=== PATIENT | female | born 1985 | race American Indian/Alaskan Native ===

== ENCOUNTER 2018-12-07 13:22 | Emergency (ER) | payer MEDICAID ==
[2018-12-07] MEDS ORDERED: Ondansetron 4 MG Tab.DIS PO ONE (13:59)
[2018-12-07] MEDS ORDERED: HYDROmorphone 1 MG/ML Syringe IM ONE (13:59)
[2018-12-07] MEDS ORDERED: Colchicine 0.6 MG Tab PO ONE ×2 (14:06→15:00)
--- NOTE | 2018-12-07 14:06 | EDM.PDOC ---
ED HPI GENERAL MEDICAL PROBLEM - General Chief Complaint: Lower Extremity Injury/Pain Stated Complaint: LT FOOT SWELLING AND PAIN Time Seen by Provider: 12/07/18 13:48 Source of Information: Reports: Patient, RN Notes Reviewed History Limitations: Reports: No Limitations - History of Present Illness INITIAL COMMENTS - FREE TEXT/NARRATIVE: Patient is a 33-year-old female who presents to the ED for the evaluation of left ankle pain. The patient states that around 6 this morning she was walking down the stairs at her motel and she was on the very last step and she thought she felt something crack in her foot. She did not have any sort of fall and did not account rolling her ankle at this time. But the patient developed lots of pain and swelling to the area and it is red and warm to the touch. The patient did try to use some ice on this but she stated however that the weight of the ice is almost too painful to be able to provide much relief. She is unable to bear much weight on the extremity as well. She took 1500 mg of Tylenol and 1200 mg of Motrin this morning with little to no relief. Patient states she's not had any sort of pain like this before in her life. She notes this to be throbbing and burning all the same time. Patient denies any chance of as she has had a tubal ligation. Patient would rate her pain at a 10 out of 10 today. She did not have any pain that radiates up the leg at all. She is still able to wiggle her toes. 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 Left Feet Pain Score (Numeric/FACES): 10 - Related Data Allergies Allergy/AdvReac Type Severity Reaction Status Date / Time ceftriaxone [From Rocephin] Allergy Cannot Verified 12/07/18 13:51 Remember Home Meds: Home Meds oxyCODONE HCl/Acetaminophen [Percocet 10-325 mg Tablet] 1 each PO Q6H #12 tablet 12/07/18 [Rx] predniSONE [Deltasone] 20 mg PO ASDIRECTED #15 tablet 12/07/18 [Rx] Past Medical History Respiratory History: Reports: Asthma HOME CARE SPECIALIST History: Reports: Endometriosis Endocrine/Metabolic History: Reports: Diabetes, Type II Other Endocrine/Metabolic History: does not take insulin-does not believe in taking it - Past Surgical History GI Surgical History: Reports: Cholecystectomy Social & Family History - Tobacco Use Smoking Status *Q: Current Every Day Smoker Years of Tobacco use: 20 Packs/Tins Daily: 0.5 - Caffeine Use Caffeine Use: Reports: Soda Other Caffeine Use: case daily - Recreational Drug Use Recreational Drug Use: No Review of Systems - Review of Systems Review Of Systems: See Below Constitutional: Denies: Chills, Fever Eyes: Reports: No Symptoms Ears: Reports: No Symptoms Nose: Reports: No Symptoms Mouth/Throat: Reports: No Symptoms Respiratory: Reports: No Symptoms Cardiovascular: Reports: No Symptoms GI/Abdominal: Reports: No Symptoms Genitourinary: Reports: No Symptoms Musculoskeletal: Reports: Joint Pain (left ankle), Joint Swelling (left ankle ) Skin: Reports: No Symptoms (left ankle with redness) Neurological: Denies: Numbness, Tingling Psychiatric: Reports: No Symptoms ED EXAM, GENERAL - Physical Exam Exam: See Below Exam Limited By: No Limitations General Appearance: Alert, WD/WN, Mild Distress (pt appears to be in mild amt of pain) Respiratory/Chest: No Respiratory Distress, Lungs Clear, Normal Breath Sounds, No Accessory Muscle Use, Chest Non-Tender Cardiovascular: Normal Peripheral Pulses, Regular Rate, Rhythm, No Murmur Peripheral Pulses: 3+: Dorsalis Pedis (L), Dorsalis Pedis (R) Extremities: Normal Capillary Refill, Joint Swelling (of left ankle), Limited Range of Motion (d/t pain), Increased Warmth (of left ankle), Redness (of left ankle). No: Leg Pain, Mottled, Pallor Neurological: Alert, Oriented, Normal Cognition, No Motor/Sensory Deficits Psychiatric: Normal Affect, Normal Mood Skin Exam: Warm, Dry, Intact, Normal Color, No Rash Course - Vital Signs Last Recorded V/S: Last Vital Signs Temp 97.5 F 12/07/18 13:43 Pulse 117 H 12/07/18 13:43 Resp 20 12/07/18 13:43 BP 158/122 H 12/07/18 13:43 Pulse Ox 97 12/07/18 13:43 - Orders/Labs/Meds Orders: Active Orders 24 hr Category Date Time Status Glucose [Blood Glucose Check, Bedside] [RC] ONETIME Care 12/07/18 16:20 Ordered Ankle Min 3V Lt [CR] Stat Exams 12/07/18 13:58 Ordered DME for Discharge [COMM] Routine Oth 12/07/18 15:35 Ordered Meds: Medications Discontinued Medications Generic Name Dose Route Start Last Admin Trade Name Kamila PRN Reason Stop Dose Admin Colchicine 1.2 mg 12/07/18 14:06 12/07/18 15:47 Colcrys PO 12/07/18 14:07 0.6 mg ONETIME ONE Administration Colchicine 0.6 mg 12/07/18 15:00 12/07/18 14:16 Colcrys PO 12/07/18 15:01 0.6 mg ONETIME ONE Administration Hydromorphone HCl 1 mg 12/07/18 13:59 12/07/18 14:05 Dilaudid IM 12/07/18 14:00 1 mg ONETIME ONE Administration Ondansetron HCl 4 mg 12/07/18 13:59 12/07/18 14:05 Zofran Odt PO 12/07/18 14:00 4 mg ONETIME ONE Administration Oxycodone/Acetaminophen 2 tab 12/07/18 14:43 12/07/18 14:58 Percocet 325-5 Mg PO 12/07/18 14:44 2 tab ONETIME ONE Administration Prednisone 40 mg 12/07/18 14:08 12/07/18 14:16 Prednisone PO 12/07/18 14:09 40 mg ONETIME ONE Administration - Re-Assessments/Exams Free Text/Narrative Re-Assessment/Exam: 12/07/18 14:17 Patient presents to the ED for evaluation of a left ankle injury. Patient thought maybe she had some sort of musculoskeletal injury, I did order a left ankle x-ray for evaluation and it appears that the patient might be suffering more from a gout-like attack. Did order colchicine and prednisone to be given and ordered 1 mg Dilaudid with 4 mg Zofran initially. Patient will be sent home with prednisone burst, and other general recommendations. 12/07/18 14:47 Patient was reassessed at bedside, and still has not gotten much relief from the pain. Did order 2 tablets of oxycodone/acetaminophen 5/325's for further management. 12/07/18 16:24 Before discharge, the patient was worried about her blood sugar, I did order a bedside glucose and it was 226. I discussed this with Dr. Curtis and he recommends no treatment at this time. The patient will be advised that she will need to take her insulin at home and check her blood sugars regularly due to the prednisone treatment, she is understanding of this. Departure - Departure Time of Disposition: 15:36 Disposition: Home, Self-Care 01 Condition: Fair Clinical Impression: Gout attack Qualifiers: Gout site: ankle Gout etiology: unspecified cause Laterality: left Qualified Code(s): M10.9 - Gout, unspecified - Discharge Information *PRESCRIPTION DRUG MONITORING PROGRAM REVIEWED*: No *COPY OF PRESCRIPTION DRUG MONITORING REPORT IN PATIENT JOCELYN: No Prescriptions: oxyCODONE HCl/Acetaminophen [Percocet 10-325 mg Tablet] 1 each PO Q6H #12 tablet predniSONE [Deltasone] 20 mg PO ASDIRECTED #15 tablet Instructions: Low-Purine Eating Plan, Gout, [id number] Referrals: PCP,None [Primary Care Provider] - Forms: ED Department Discharge Additional Instructions: You were evaluated in the ED today for your left ankle pain. An x-ray was obtained and did not demonstrate any sort of acute bony abnormalities at this time. Your symptoms are consistent with gout in nature, you were given colchicine and some pain medications in the ER for management of this. You were given a prescription for prednisone, Percocet tablets, please take as directed. You may use crutches for ambulation until the pain is at an excessive level with ambulation. You may try to ice the area as needed for further pain relief. Please return to the ED if your symptoms should change or worsen. - My Orders Last 24 Hours: My Active Orders 12/07/18 13:58 Ankle Min 3V Lt [CR] Stat 12/07/18 15:35 DME for Discharge [COMM] Routine 12/07/18 16:20 Glucose [Blood Glucose Check, Bedside] [RC] ONETIME - Assessment/Plan Last 24 Hours: My Active Orders 12/07/18 13:58 Ankle Min 3V Lt [CR] Stat 12/07/18 15:35 DME for Discharge [COMM] Routine 12/07/18 16:20 Glucose [Blood Glucose Check, Bedside] [RC] ONETIME
[2018-12-07] MEDS ORDERED: predniSONE 20 MG Tab PO ONE (14:08)
[2018-12-07] MEDS ORDERED: Acetaminophen/oxyCODONE 325-5 MG Tab PO ONE (14:43)
--- NOTE | 2018-12-09 07:33 | CR ---
Left ankle: Three views of the left ankle were obtained. Comparison: No previous ankle study. Soft tissue swelling is noted. Small calcification is seen within the distal Achilles tendon at the attachment to the calcaneus. No fracture, dislocation or other bony abnormality is seen. Impression: 1. Soft tissue swelling. Other findings believed to be incidental. 2. No acute bony abnormality is appreciated on left ankle study. Diagnostic code #2
== END 2018-12-07 16:36 | disposition home or self-care (01) ==
LOC: JD.ED 13:22
DX: M10.9 Gout, unspecified (principal); E11.9 Type 2 diabetes mellitus without complications; F17.210 Nicotine dependence, cigarettes, uncomplicated; Z90.49 Acquired absence of other specified parts of digestive tract; Z88.1 Allergy status to other antibiotic agents
CPT/HCPCS: 73610; 82962; 96372; 99283; A9270; J1170